=== PATIENT | female | born 1960 | race Caucasian/White ===

== ENCOUNTER 2016-04-12 10:19 | Inpatient (IN) | payer BC, MEDICARE ==
[~2016-04-12] VITALS: Ht 160 cm; Wt 101.5 kg
[2016-04-12] MEDS ORDERED: DUONEB INH ONE ×4 (11:14→15:43)
[2016-04-12] MEDS ORDERED: METHYLPRED SOD SUCC 125 MG/2 ML VIAL ONE (11:27)
[2016-04-12] MEDS ORDERED: SODIUM CHLORIDE 0.9% 250 ML IV ONE (15:59)
[2016-04-12] MEDS ORDERED: SODIUM CHLORIDE 0.9% 100 ML IV ONE (15:59)
[2016-04-12] MEDS ORDERED: CEFTRIAXONE 1 GM VIAL ONE (15:59)
[2016-04-12] MEDS ORDERED: AZITHROMYCIN 500 MG VIAL IV ONE (15:59)
[2016-04-12] MEDS ORDERED: ONDANSETRON 4 MG VIAL IV PRN (16:25)
[2016-04-12] MEDS ORDERED: DEXTROSE 50% SYRINGE 50 ML IV PRN (16:25)
[2016-04-12] MEDS ORDERED: ALU/MAG/SIM 30 ML UDC PO PRN (16:25)
[2016-04-12] MEDS ORDERED: GLUCAGON 1 MG VIAL IM PRN (16:25)
[2016-04-12] MEDS ORDERED: MAG HYDROX 30 ML UDC PO PRN (16:25)
[2016-04-12] MEDS: DUONEB INH SCH ×3 (16:25→23:17)
[2016-04-12] MEDS ORDERED: SALINE FLUSH 10 ML FLUSH PRN (16:25)
[2016-04-12] MEDS: ACETAMINOPHEN 325 MG TAB PO PRN (17:56)
[2016-04-12 18:06] VITALS: RESP 16
[2016-04-12 18:10] VITALS: BP_SYST 162; RESP 22; TEMP 98.1
[2016-04-12 18:11] VITALS: Ht 160 cm; Wt 101.5 kg
[2016-04-12] MEDS ORDERED: Flu Vaccine Quadrivalent 60 MCG/0.5 ML IM.VACC ONE (18:15)
[2016-04-12 19:07] VITALS: BP_SYST 137; RESP 22; TEMP 97.8
[2016-04-12] MEDS: SALINE FLUSH 10 ML FLUSH SCH (20:00)
[2016-04-12] MEDS: METOPROLOL XL 50 MG TAB PO SCH (21:02)
[2016-04-12] MEDS: TEMAZEPAM 15 MG CAP PO SCH (21:02)
[2016-04-12 23:07] VITALS: BP_SYST 137; RESP 22; TEMP 97.5
[2016-04-12] MEDS: METHYLPRED SOD SUCC 125 MG/2 ML VIAL IV SCH (23:14)
[2016-04-13] MEDS: DUONEB INH SCH ×6 (03:05→22:25)
[2016-04-13 03:25] VITALS: BP_SYST 146; RESP 22; TEMP 97.7
[2016-04-13] MEDS: SODIUM CHLORIDE 0.9% FLUSH BAG 500 ML IV SCH (05:50)
[2016-04-13] MEDS: PANTOPRAZOLE 40 MG TAB PO SCH (05:50)
[2016-04-13] MEDS: ACETAMINOPHEN 325 MG TAB PO PRN ×2 (05:54→15:06)
[2016-04-13 07:01] VITALS: BP_SYST 148; RESP 20; TEMP 97.6
[2016-04-13] MEDS: SALINE FLUSH 10 ML FLUSH SCH ×2 (08:27→20:28)
[2016-04-13] MEDS: METOPROLOL XL 50 MG TAB PO SCH ×2 (08:28→20:23)
[2016-04-13] MEDS: METHYLPRED SOD SUCC 125 MG/2 ML VIAL IV SCH ×3 (08:28→23:21)
[2016-04-13] MEDS: CEFTRIAXONE 1 GM in SODIUM CHLORIDE 0.9% 50 ML IV SCH (08:29)
[2016-04-13] MEDS: AZITHROMYCIN 500 MG in SODIUM CHLORIDE 0.9% 250 ML IV SCH (10:10)
[2016-04-13 11:33] VITALS: BP_SYST 171; RESP 22; TEMP 97.7
[2016-04-13] MEDS ORDERED: OPTIRAY 350 100 ML VIAL HMH IV ONE (12:32)
[2016-04-13 14:56] VITALS: BP_SYST 146; RESP 20; TEMP 97.9
[2016-04-13 19:03] VITALS: BP_SYST 151; RESP 20; TEMP 98.3
[2016-04-13 22:56] VITALS: BP_SYST 143; RESP 20; TEMP 98.2
[2016-04-13] MEDS: TEMAZEPAM 15 MG CAP PO SCH (23:21)
[2016-04-14] MEDS: DUONEB INH SCH ×6 (02:26→23:02)
[2016-04-14 04:22] VITALS: BP_SYST 136; RESP 20; TEMP 97.8
[2016-04-14] MEDS: PANTOPRAZOLE 40 MG TAB PO SCH (06:07)
[2016-04-14] MEDS: SODIUM CHLORIDE 0.9% FLUSH BAG 500 ML IV SCH (06:07)
[2016-04-14 07:22] VITALS: BP_SYST 145; RESP 20; TEMP 97.5
[2016-04-14] MEDS: CEFTRIAXONE 1 GM in SODIUM CHLORIDE 0.9% 50 ML IV SCH (08:19)
[2016-04-14] MEDS: METHYLPRED SOD SUCC 125 MG/2 ML VIAL IV SCH ×3 (08:19→23:03)
[2016-04-14] MEDS: SALINE FLUSH 10 ML FLUSH SCH ×2 (08:20→19:24)
[2016-04-14] MEDS: METOPROLOL XL 50 MG TAB PO SCH ×2 (08:20→20:16)
[2016-04-14] MEDS ORDERED: LISINOPRIL 10 MG TAB PO SCH (09:40)
[2016-04-14] MEDS: AZITHROMYCIN 500 MG in SODIUM CHLORIDE 0.9% 250 ML IV SCH (09:50)
[2016-04-14] MEDS: VENLAFAXINE XR 75 MG CAP PO SCH (10:55)
[2016-04-14] MEDS: ENOXAPARIN 30 MG/0.3 ML SYR SUBQ SCH (10:56)
[2016-04-14 11:06] VITALS: BP_SYST 172; RESP 20; TEMP 97.1
[2016-04-14 15:14] VITALS: BP_SYST 154; RESP 20; TEMP 97.1
[2016-04-14 19:00] VITALS: BP_SYST 153; RESP 20; TEMP 98.3
[2016-04-14 22:31] VITALS: BP_SYST 152; RESP 20; TEMP 98.2
[2016-04-14] MEDS: TEMAZEPAM 15 MG CAP PO SCH (22:32)
[2016-04-15] MEDS: DUONEB INH SCH ×6 (02:28→23:21)
[2016-04-15 04:03] VITALS: BP_SYST 112; RESP 20; TEMP 98.4
[2016-04-15] MEDS: PANTOPRAZOLE 40 MG TAB PO SCH (06:07)
[2016-04-15] MEDS: SODIUM CHLORIDE 0.9% FLUSH BAG 500 ML IV SCH (06:08)
[2016-04-15 07:28] VITALS: BP_SYST 150; RESP 20; TEMP 98.5
[2016-04-15] MEDS: SALINE FLUSH 10 ML FLUSH SCH ×2 (09:06→20:28)
[2016-04-15] MEDS: CEFTRIAXONE 1 GM in SODIUM CHLORIDE 0.9% 50 ML IV SCH (09:06)
[2016-04-15] MEDS: VENLAFAXINE XR 75 MG CAP PO SCH (09:07)
[2016-04-15] MEDS: LISINOPRIL 10 MG TAB PO SCH ×2 (09:07→20:28)
[2016-04-15] MEDS: METHYLPRED SOD SUCC 125 MG/2 ML VIAL IV SCH ×3 (09:07→23:09)
[2016-04-15] MEDS: ENOXAPARIN 30 MG/0.3 ML SYR SUBQ SCH (09:08)
[2016-04-15] MEDS: METOPROLOL XL 50 MG TAB PO SCH ×2 (09:08→20:28)
[2016-04-15] MEDS: NYSTATIN 500,000 UNITS/5 ML SUSP SWISH.SWAL SCH ×4 (10:07→20:28)
[2016-04-15] MEDS: AZITHROMYCIN 500 MG in SODIUM CHLORIDE 0.9% 250 ML IV SCH (10:07)
[2016-04-15 10:58] VITALS: BP_SYST 142; RESP 16; TEMP 98.1
[2016-04-15 15:12] VITALS: BP_SYST 145; RESP 20; TEMP 98.1
[2016-04-15 19:09] VITALS: BP_SYST 169; RESP 18; TEMP 97.8
[2016-04-15] MEDS: TEMAZEPAM 15 MG CAP PO SCH (20:28)
[2016-04-15 22:50] VITALS: BP_SYST 135; RESP 16; TEMP 97.7
[2016-04-16 02:53] VITALS: BP_SYST 176; RESP 18; TEMP 97.9
[2016-04-16] MEDS: DUONEB INH SCH ×2 (02:56→08:11)
[2016-04-16] MEDS: PANTOPRAZOLE 40 MG TAB PO SCH (06:09)
[2016-04-16] MEDS: SODIUM CHLORIDE 0.9% FLUSH BAG 500 ML IV SCH (06:10)
[2016-04-16 07:05] VITALS: BP_SYST 160; RESP 20; TEMP 98
[2016-04-16] MEDS: CEFTRIAXONE 1 GM in SODIUM CHLORIDE 0.9% 50 ML IV SCH (07:59)
[2016-04-16] MEDS: LISINOPRIL 10 MG TAB PO SCH (07:59)
[2016-04-16] MEDS: METOPROLOL XL 50 MG TAB PO SCH (07:59)
[2016-04-16] MEDS: ENOXAPARIN 30 MG/0.3 ML SYR SUBQ SCH (08:00)
[2016-04-16] MEDS: VENLAFAXINE XR 75 MG CAP PO SCH (08:00)
[2016-04-16] MEDS: METHYLPRED SOD SUCC 125 MG/2 ML VIAL IV SCH (08:02)
[2016-04-16] MEDS: SALINE FLUSH 10 ML FLUSH SCH (08:03)
[2016-04-16 08:54] VITALS: BP_SYST 160; RESP 20; TEMP 98
[2016-04-16] MEDS: NYSTATIN 500,000 UNITS/5 ML SUSP SWISH.SWAL SCH (09:00)
== END 2016-04-16 09:17 | disposition home or self-care (01) | DRG 189 ==
LOC: ENRESERVDT → ENRESERVTM → ER 10:19 → ENPENDDIS 16:23 → EMR 16:23 → 4NT 17:39
PROVIDERS: ADMIT Internal Medicine; ATTEND Internal Medicine
CPT/HCPCS: 36600; 71010; 71260; 80048; 82947; 83735; 85025; 93005; 94640; 94667; 94668; 94799; 96365; 96375